=== PATIENT | female | born 1965 | race Caucasian/White ===

== ENCOUNTER 2023-11-27 09:18 | Emergency (ER) | payer OTHER, SELFPAY ==
[2023-11-27 09:28] VITALS: BP 142/93
[2023-11-27 09:43] VITALS: BP 130/76
--- NOTE | 2023-11-27 09:55 | ED.GENMED ---
History of Present Illness
General
Chief Complaint: Breathing Problem
Source: patient
Exam Limitations: none
Time Seen by Provider: 11/27/23 09:45
History of Present Illness
History of Present Illness:
Patient is a 58-year-old female who has had issues with shortness of breath and feeling that she cannot him deep breath in since September. She does have a history of asthma and was seen by her asthma specialist and had normal lung test done in September when
symptoms started. She reports symptoms persisted and then she reports she was placed on prednisone and antibiotic and eventually had an outpatient x-ray which all was normal however symptoms still persisted. She finally saw her family October
due to normal EKG and ordered an echo which is scheduled for December 04. Her physicians felt that this could be silently they added pantoprazole to her famotidine. For the past several days however she has had continued sensation of shortness of
breath she feels unable to get a deep breath and today while walking she felt chest tightness and felt short of breath.
She does not smoke. She has been on hormone replacement therapy but did remove the patch recently.
Past History
Past History
ED Past Medical History: Asthma
ED Past Surgical History: None and Orthopedic
Social History
Tobacco: Non-smoker
Personal:
Living: with family
Employment: Employed
Review of Systems
Review of Systems
Allergies reviewed?: Yes
All Other Systems: ROS reviewed and negative except as documented in HPI and ROS
Constitutional: Reports no symptoms; Denies fever or fatigue
Respiratory: Reports trouble breathing; Denies cough
Cardiac: Reports other (chest tightness today )
ABD/GI: Reports no symptoms
: Reports no symptoms
Musculoskeletal: Reports no symptoms
Skin: Reports no symptoms
Neurological: Reports no symptoms
Hematologic/Lymphatic: Reports no symptoms
Psychiatric: Reports no symptoms
Phy Exam
General Physical Exam
General Presentation: no apparent distress
General age: appears stated age
General Skin: warm and dry
General Habitus: normal
General Mental: alert
General Hydration: appears well hydrated
Cardiovascular Exam
Cardiovascular Exam: regular rate/rhythm, no murmur and normal peripheral pulses
Pulmonary Exam
Pulmonary Exam: lungs clear and no respiratory distress
Neurological Exam
Neurological Exam: alert and oriented x3
Musculoskeletal Exam
Musculoskeletal Exam: full ROM
Skin Exam
Skin Exam: normal color and warm/dry
Psychiatric Exam
Psychiatric Exam: normal mood/affect
Scores
Heart Failure Risk
Heart Failure Risk Score: Not Applicable
Course
Orders/Labs/Results
Orders:
Orders
11/27/23 09:21
Electrocardiogram (*1) Urgent
Reason for Study: Chest Pain
EKG- Treatment ONCE
11/27/23 09:58
Cardiac Monitoring- Treatment ONCE
11/27/23 09:59
IV Insert/Care/Rem.- Treatment PRN
0.9% Sodium Chloride 1000 ml [Nss] 1,000 ml IV BOLUS
11/27/23 10:37
Complete Blood Count/With Diff Urgent
Comprehensive Metabolic Panel Urgent
DDimer [D-Dimer] Urgent
Troponin I Urgent
11/27/23 12:08
CT Chest Pe Study Urgent
Comment:
Reason For Exam: sob
11/27/23 12:09
Diphenhydramine [Benadryl] 50 mg IV NOW STA
Hydrocortisone Sod Succinate [Solu-Cortef] 200 mg IV NOW STA
11/27/23 10:37
11/27/23 10:37
Vital Signs
Initial and Last Documented VS:
Initial Vital Signs
Temp Pulse Resp BP Pulse Ox
97.4 F 75 18 142/93 100
11/27/23 09:28 11/27/23 09:28 11/27/23 09:28 11/27/23 09:28 11/27/23 09:28
Last Documented Vital Signs
Temp Pulse Resp BP Pulse Ox
97.4 F 62 15 118/75 97
11/27/23 09:28 11/27/23 14:00 11/27/23 14:00 11/27/23 14:00 11/27/23 14:00
Pre Billing Specialist consulted with Physician
Pre Billing Specialist consulted with physician?: Yes
Name of Physician Consulted: Rob
MDM/Problems Addressed
Differential Diagnosis Includes:
Not limited to anxiety, PE, unstable angina, asthma
MDM/Problems Addressed:
Patient is a 58-year-old female with history of silent reflux, asthma presents today with worsening shortness of breath since September. She has been evaluated by her asthma specialist had normal pulmonary function test has been on prednisone antibiotics
and also had a PPI added thinking this was silent reflux. She has had no relief and symptoms are getting worse. Today she had worsening shortness of breath and tightness while walking. She feels that she is unable to get a deep breath. She is on
hormone replacement therapy recently removes the patch. She does not smoke.
12pm: Patient's workup unremarkable so far here in the ER. She had negative D-dimer and negative cardiac troponin. She did however ambulate and though she was not hypoxic she complained of feeling very short of breath. She has listed in her
allergies anaphylaxis with antibiotics including iodine however on questioning she reports she is not allergic to iodine. Will still prep and order CAT scan to check for other causes of patient's symptoms. Patient juliana nontachycardic nontachypneic
1437: PT remains awake alert no acute distress nontachypneic, lungs are clear.
CT unremarkable. Patient does have an echocardiogram scheduled December 02 will DC with outpatient follow-up cardiology as well as pulmonology. Her asthma specialist states that she only works with asthma
*Radiology
Radiology exam reviewed: radiology read reviewed
*Pulse Oximetry
Patient hypoxic: no
*EKG
Interpreted by ED Provider?: Yes
Interpretation: normal
Heart Rate: 64
Rate: normal
Rhythm: sinus
Ischemia: no ischemia
*Critical Care Note
Total Time (30-74mins, 75-104mins- exclusive of procedures): Not Applicable
ED Attending Note
-
Portions of this chart may have been created with voice recognition software.� Occasional wrong word or��sound alike� substitutions may have occurred due to the inherent limitations of voice recognition software.
Discharge Plan
Departure
Patient Disposition: Home (Routine Discharge)
Date of Disposition: 11/27/23
Time of Disposition: 14:38
Patient with high blood pressure during this ER visit?: Yes
Covid-19: Not Applicable
Discharge Problem:
Acute dyspnea
Instructions: Shortness of Breath, Adult ED, Shortness of Breath (Dyspnea) (DC)
Referrals:
Ivon Taylor MD [Active] -
Nicko Bahena DO [Family Provider] -
Dudley Chaudhary MD [Active] -
Activity Restrictions/Additional Instructions:
As discussed follow-up with family doctor in the next several days for continued reevaluation of symptoms. You are also given cardiology and pulmonology. Follow-up with your echo was scheduled.
return if any worsening of symptoms
Interventions
Interventions:
*Risk Screen - Suicide Last Done: 11/27/23 09:28
*General Assessment Last Done: 11/27/23 09:28
*Neglect/Abuse Screening Last Done: 11/27/23 09:28
ED- Fall Risk Assessment Last Done: 11/27/23 11:01
ED- Cardiac Assessment Last Done: 11/27/23 12:40
ED- Pulmonary Assessment Last Done: 11/27/23 12:40
Discharge Date and Time
Print Language: WELSH
[2023-11-27 10:00] VITALS: BP 111/77
[2023-11-27 10:44] LABS: % Basophils 0.5 % (0-2); % Eosinophils 1.6 % (0-6); % Immature Granulocytes 0.3 % (0-0.5); % Monocytes 8.9 % (1.7-9.3); % Neutrophils 61.7 % (42.2-75.2); Absolute Eosinophils 0.1 10^3/uL (0-0.7); Absolute Lymphocytes 1.6 10^3/uL (1.2-3.4); Absolute Monocytes 0.5 10^3/uL (0.1-0.6); Absolute Neutrophils 3.5 10^3/uL (1.4-6.5); Hematocrit 39.8 % (37.0-47.0); Hemoglobin 13.6 g/dL (12.0-16.0); Mean Corp Hgb Conc. 34.2 g/dL (33.0-37.0); Mean Corpuscular Hgb 30.1 pg (27.0-31.0); Mean Corpuscular Volume 88.1 fL (81.0-99.0); Mean Platelet Volume 9.1 fL (7.4-10.4); Nucleated Red Blood Cells % 0 %; Platelet Count 227 10^3/uL (130-400); Red Blood Cell Count 4.52 10^6/uL (4.20-5.40); Red Cell Dist. Width 12.8 % (11.5-14.5); White Blood Cell Count 5.7 10^3/uL (4.8-10.8)
[2023-11-27 10:56] LABS: ALT (SGPT) 20 U/L (0-35); AST (SGOT) 22 U/L (14-36); Alkaline Phosphatase 60 U/L (38-126); Blood Urea Nitrogen 16 mg/dl (7-17); Calcium 9.9 mg/dl (8.4-10.2); Carbon Dioxide 26 mmol/L (22-30); Chloride 106 mmol/L (98-107); Glucose 96 mg/dl (70-99); Potassium 4.2 mmol/L (3.5-5.1); Sodium 140 mmol/L (135-145); Total Bilirubin 0.5 mg/dl (0.2-1.3); Total Protein 7.5 g/dl (6.3-8.2); eGFR > 60.00
[2023-11-27 11:00] LABS: D-Dimer < 0.27 ug/mlFEU (0.00-0.50)
[2023-11-27 11:08] LABS: Troponin I < 0.012 ng/ml
[2023-11-27] MEDS: SOLU-CORTEF 200 MG IV (12:41)
[2023-11-27] MEDS: BENADRYL 50 MG IV (12:41)
[2023-11-27 12:46] VITALS: BP 124/86
[2023-11-27 13:00] VITALS: BP 110/73
[2023-11-27 14:00] VITALS: BP 118/75
== END 2023-11-27 15:26 | disposition home or self-care (01) ==
LOC: EMR 09:18
PROVIDERS: Nurse Practitioner; EMERGENCY PHYSICIAN Emergency Medicine; FAMILY PHYSICIAN Family Medicine
DX: R06.00 Dyspnea, unspecified (principal); J45.909 Unspecified asthma, uncomplicated; K21.9 Gastro-esophageal reflux disease without esophagitis; Z79.890 Hormone replacement therapy
CPT/HCPCS: 99284; 96374; 96375; 71275; 80053; 84484; 85025; 85379; 93005; Q9967

== ENCOUNTER → 2023-12-05 09:29 | Outpatient (REF) | payer OTHER, SELFPAY | LOC: RCS 09:29 | PROVIDERS: ATTENDING PHYSICIAN Family Medicine; FAMILY PHYSICIAN Family Medicine | DX: R06.9 Unspecified abnormalities of breathing (principal) | CPT/HCPCS: 93306 ==

== ENCOUNTER → 2023-12-12 07:03 | Outpatient (REF) | payer OTHER, SELFPAY | LOC: RCS 07:03 | PROVIDERS: ATTENDING PHYSICIAN Student in an Organized Health Care Education/Training Program; FAMILY PHYSICIAN Family Medicine | DX: R06.02 Shortness of breath (principal) | CPT/HCPCS: 78452; 93017; A9500 ==

== ENCOUNTER → 2023-12-27 08:49 | Outpatient (REF) | payer OTHER, SELFPAY | LOC: RAD 08:49 | PROVIDERS: ATTENDING PHYSICIAN Family Medicine | DX: K21.9 Gastro-esophageal reflux disease without esophagitis (principal) | CPT/HCPCS: 74246 ==

== ENCOUNTER → 2024-01-13 12:00 | Outpatient (REF) | payer OTHER, SELFPAY | LOC: DHSLP 12:00 | PROVIDERS: ATTENDING PHYSICIAN Internal Medicine Critical Care Medicine; FAMILY PHYSICIAN Family Medicine | DX: G47.19 Other hypersomnia (principal); R06.83 Snoring | CPT/HCPCS: 95800 ==

== ENCOUNTER → 2024-02-07 09:45 | Outpatient (REF) | payer OTHER, SELFPAY | LOC: DHSLP 09:45 | PROVIDERS: ATTENDING PHYSICIAN Internal Medicine Critical Care Medicine; FAMILY PHYSICIAN Family Medicine | DX: G47.33 Obstructive sleep apnea (adult) (pediatric) (principal) | CPT/HCPCS: 95810 ==

== ENCOUNTER → 2024-09-15 18:20 | Outpatient (REF) | payer OTHER, SELFPAY | LOC: MRI 18:20 | PROVIDERS: ATTENDING PHYSICIAN Family Medicine | DX: R42 Dizziness and giddiness (principal); G93.5 Compression of brain | CPT/HCPCS: 70553; A9575 ==